=== PATIENT | female | born 1960 | race Caucasian/White ===

== ENCOUNTER 2021-03-06 06:40 | Inpatient (IN) ==
--- NOTE | 2021-02-14 13:50 | PAT Medication Instructions ---
Medication Instructions Date of Service February 14, 2021 Home Medications hydrochlorothiazide 12.5 mg PO QAM ibuprofen 800 mg PO Q6H PRN losartan 50 mg PO QAM simvastatin 20 mg PO QAM ASK your surgeon for instructions ibuprofen 800 mg PO Q6H PRN DO NOT take the morning of surgery hydrochlorothiazide 12.5 mg PO QAM losartan 50 mg PO QAM Take morning of surgery With a small sip of water, OTHERWISE NOTHING TO EAT OR DRINK AFTER MIDNIGHT: simvastatin 20 mg PO QAM Other Notes If you have any questions please call us at [phone] or [phone] or [phone] or [phone]
--- NOTE | 2021-02-15 13:34 | Anesthesiology Consultation ---
Date of Service February 15, 2021 Assessment & Plan (1) Encounter for pre-operative examination: COVID screening: Per assessment on 02/15: Travel screen negative, no known COVID- 19 positive contacts or current COVID-19 related symptoms. Surgeon arranging preop COVID testing. Awaiting results. Chart Review Chart Review: Acceptable Risk for Surgery (pending surgeon-ordered PCP clearance) and Patient seen in Pre Admission Testing Teaching & Discussion Pre-Anesthesia Teaching/Discussion Notes: Instructed NPO after midnight before surgery,except medications with 15 cc of water. Medication instructions provided according to the PAT guidelines. History Surgery Operation Date: 03/06/21 07:00 Proposed Procedures p Right Total Knee Arthroplasty - Antelmo Bernal DO Height/Weight Height: 5 ft 1 in Weight: 89.6 kg Allergies Allergy/AdvReac Type Severity Reaction Status Date / Time latex Allergy Intermediate Rash Verified 02/10/21 13:50 Medications Home Medications Medication Instructions Recorded Confirmed Last Taken hydrochlorothiazide 12.5 mg PO QAM 02/10/21 02/10/21 Unknown ibuprofen 800 mg PO Q6H PRN 02/10/21 02/10/21 Unknown losartan 50 mg PO QAM 02/10/21 02/10/21 Unknown simvastatin 20 mg PO QAM 02/10/21 02/10/21 Unknown Past Medical History Medical History Breast cancer R/L lumpectomy (2005) Hyperlipidemia Hypertension Obesity Osteoarthritis Exercise / Class Metabolic Activity II 4-5 Yardwork/Stairs/Walk up hill Past Family History Family History Father Diabetes Mother Diabetes Past Surgical History Surgical History History of arthroscopic knee surgery R/L meniscus repair History of carpal tunnel release R/L History of section x2 History of colonoscopy History of esophagogastroduodenoscopy (EGD) History of hysterectomy History of laparoscopy History of tooth extraction Hx of lumpectomy R/L Past Anesthesia History No Hx of Anesthesia Complications and No Family Hx of Anesthesia Complications History of PONV No Hx of PONV and Hx of Motion Sickness (+ boats) Social History Smoking Status: Never smoker Do You Dip or Chew Tobacco: No Hx Alcohol Use: Yes Alcohol type: beer and wine alcohol intake frequency: holidays/special occasions only Hx Substance Use: No substance use type: does not use Review of Systems Patient denies chest pain, shortness of breath, dyspnea on exertion, joint pain, reflux, cough, wheezing, palpitations. Physical Exam Vital Signs VITALS BP 123/76 P 66 TEMP 98.8 SP02 95%RA RESP 16 PHYSICAL Full cervical extension range of motion. Full TMJ range of motion. TMD 2.5 finger breaths (small chin/difficult to palpate) Mallampati Score 4 (small oral opening) Dentition: missing molar Lungs: clear throughout to auscultation Cardiac: regular rate and rhythm, no murmurs noted Spine: normal Carotid arteries: negative bruit Extremities: no edema Testing Laboratory Results 02/15/21 14:05 02/15/21 14:05 PT 9.7 Seconds (9.0-12.0) 02/15/21 14:05 INR 1.0 (0.9-1.1) 02/15/21 14:05 APTT 22.9 Seconds (21.0-31.0) 02/15/21 14:05 Hemoglobin A1c 6.0 % (4.5-5.6) H 02/15/21 14:05 Urine Color Dark Yellow 02/15/21 14:05 Urine Appearance Cloudy (Clear) A 02/15/21 14:05 Urine pH 5.0 (4.5-7.5) 02/15/21 14:05 Ur Specific Lynn 1.028 (1.000-1.030) 02/15/21 14:05 Urine Protein Negative (Negative) 02/15/21 14:05 Urine Glucose (UA) Negative (Negative) 02/15/21 14:05 Urine Ketones Trace (Negative) H 02/15/21 14:05 Urine Nitrite Negative (Negative) 02/15/21 14:05 Ur Leukocyte Esterase 2+ (Negative) H 02/15/21 14:05 Urine WBC (Auto) 10-30 /hpf (0-5) H 02/15/21 14:05 Urine RBC (Auto) 0-4 /hpf (0-4) 02/15/21 14:05 U Hyaline Cast (Auto) 1-5 /lpf (0-5) 02/15/21 14:05 U Epithel Cells (Auto) >30 /lpf (0-5) H 02/15/21 14:05 Urine Bacteria (Auto) Negative (Negative) 02/15/21 14:05 Blood Type A Positive 02/15/21 14:05 Antibody Screen NEGATIVE 02/15/21 14:05 Electrocardiogram Date: 02/15/21 Findings: + NSR @ (67) Chest X-Ray Date: 02/15/21 Findings: + NAD
--- NOTE | 2021-02-15 14:33 | XRay Report ---
XR chest Pre-admission PA/Lat HISTORY: 60 years-old Female pat chronic degenerative joint disease COMPARISON: None TECHNIQUE: PA and lateral views of the chest FINDINGS: Cardiomediastinal and hilar silhouettes are within normal limits. No pneumothorax, pleural effusion, airspace consolidation or overt pulmonary edema. Spondylitic spurring of the spine. IMPRESSION: No acute process. ACT 112: Negative or not required by law. The above report was generated using voice recognition software. It may contain grammatical, syntax o r spelling errors. Electronically signed by: David Bull M.D. 02/15/2021 2:31 PM
[2021-02-15 15:55] LABS: Basophils # (auto) 0.01 K/uL (0-0.2); Basophils % (auto) 0.2 %; Eosinophils # (auto) 0.15 K/uL (0-0.5); Eosinophils % (auto) 2.7 %; Hemoglobin 14.5 g/dL (12.0-16.0); Immature Granulocytes # (auto) 0.01 K/uL (0.00-0.02); Immature Granulocytes % (auto) 0.2 %; Lymphocytes # (auto) 2.66 K/uL (1.2-3.4); Lymphocytes % (auto) 48.7 %; Mean Corpuscular Hemoglobin 31.5 pg (25-34); Mean Corpuscular Hgb Conc 33.7 g/dL (32-36); Mean Corpuscular Volume 93.5 fL (80-100); Mean Platelet Volume 10.9 fL (7.4-10.4); Monocytes % (auto) 9.2 %; Neutrophils # (auto) 2.13 K/uL (1.4-6.5); Platelet Count 300 K/uL (130-400); RDW Coefficient of Variation 13.5 % (11.5-14.5); RDW Standard Deviation 46.2 fL (36.4-46.3); White Blood Count 5.46 K/uL (4.8-10.8)
[2021-02-15 16:06] LABS: Partial Thromboplastin Ratio 0.9; Partial Thromboplastin Time 22.9 Seconds (21.0-31.0); Prothrombin Time 9.7 Seconds (9.0-12.0)
[2021-02-15 16:07] LABS: Albumin Level 3.7 gm/dl (3.4-5.0); BUN Creatinine Ratio 34.8 (10-20); Calcium 9.9 mg/dl (8.5-10.1); Creatinine Clr Calc Pharmacy 68.6 ml/min; Est GFR (African American) 81.1 ml/min; Potassium 4.5 mmol/L (3.5-5.1)
[2021-02-15 16:08] LABS: Appearance Urine Cloudy (Clear); Bacteria Urine Automated Negative (Negative); Bilirubin Urine Negative (Negative); Blood Urine Negative (Negative); Color Urine Dark Yellow; Epithelial Cell Urine Auto >30 /lpf (0-5); Glucose Urine UA Negative (Negative); Ketones Urine Trace (Negative); Leukocyte Esterase Urine 2+ (Negative); Nitrite Urine Negative (Negative); Protein Urine Negative (Negative); Specific Gravity Urine 1.028 (1.000-1.030); Urobilinogen Urine Negative (Negative)
[2021-02-15 16:24] LABS: RBC Urine Automated 0-4 /hpf (0-4)
[2021-02-16 07:32] LABS: Estimated Average Glucose 126 mg/dl
--- NOTE | 2021-02-16 09:55 | Electrocardiogram Report ---
Test Reason : Blood Pressure : / mmHG Vent. Rate : 067 BPM Atrial Rate : 067 BPM P-R Int : 200 ms QRS Dur : 096 ms QT Int : 406 ms P-R-T Axes : 038 -20 048 degrees QTc Int : 429 ms Normal sinus rhythm Normal ECG No previous ECGs available Confirmed by Kashmir Tirado ([id number]) on 02/16/2021 9:55:39 AM Referred By: Antelmo Bernal Confirmed By:Alex Tirado
--- NOTE | 2021-03-05 08:12 | History & Physical Report ---
Date of Service March 06, 2021 Assessment & Plan (1) Degenerative joint disease of knee, right: I have indicated the patient for right total knee replacement. The risks, benefits and complications of surgery were explained to the patient which include but not limited to infection, acute blood loss, DVT/PE, injury to nerves, vessels, bone, soft tissue, arthrofibrosis, chronic pain, failure of the prosthesis, knee dislocation, leg length discrepancy, need for additional surgery, cardiac and pulmonary events and . The patient wished to proceed with surgery and informed consent was obtained at this time. We will plan for 81mg ASA BID post-operatively for DVT prophylaxis. Upon discharge the patient will be discharged home with home health services. Appropriate clearances by PCP were obtained. History of Present Illness Chief Complaint: Right knee pain/DJD Primary Care Provider: Carrie Argueta PA-C The patient is a 60 year old female who presents with complaints of severe right knee pain and DJD. The patient has failed outpatient conservative treatments to this point which included NSAIDs, IA corticosteroid and BARRETT injection, home exercise/walking program. The patient's pain and limited function have progressed to the point where they severely hinder their activities of daily living and they no longer tolerate exercise programs. They are requesting to proceed with total knee replacement surgery. Allergies Allergy/AdvReac Type Severity Reaction Status Date / Time latex Allergy Intermediate Rash Verified 03/06/21 07:16 Home Medications Medication Instructions Recorded Confirmed Type hydrochlorothiazide 12.5 mg PO QAM 02/10/21 03/06/21 History ibuprofen 800 mg PO Q6H PRN 02/10/21 03/06/21 History losartan 50 mg PO QAM 02/10/21 03/06/21 History simvastatin 20 mg PO QAM 02/10/21 03/06/21 History Past Med/Surg History Medical History Breast cancer R/L lumpectomy (2005) Hyperlipidemia Hypertension Obesity Osteoarthritis Surgical History History of arthroscopic knee surgery R/L meniscus repair History of carpal tunnel release R/L History of section x2 History of colonoscopy History of esophagogastroduodenoscopy (EGD) History of hysterectomy History of laparoscopy History of tooth extraction Hx of lumpectomy R/L Family History Father Diabetes Mother Diabetes Social History Smoking Status: Never smoker Second Hand Exposure: No; Do You Dip or Chew Tobacco: No; Tobacco Cessation Education Requested by Patient: No Hx Alcohol Use: Yes Alcohol type: beer and wine Hx Substance Use: No Preferred Language: [place] Islander Communication Ability: Effective Chief Communications Officer Required: No Beliefs That Will Affect Care: None Current Living Situation: Spouse Other Information That Helps Us Care for You: No Feels Safe at Home: Yes Safety Concerns: Feels Safe At This Time Assistive Devices: Glasses Review of Systems Review of Systems: All systems reviewed & are unremarkable except as noted in HPI & below Constitutional: as per Subjective / HPI Physical Exam Physical Exam: RLE NVSI +EHL/FHL/TA/GS SILT grossly, +2 DP pulse, compartments soft NT, limited painful ROM of the knee, 3-115 degrees of flexion, +crepitus. Constitutional: WD/WN, vitals as above Eyes: PERRL, conjunctivae normal, anicteric sclerae ENMT: external ear and nose normal, oropharynx normal Neck: trachea midline, no thyromegaly Respiratory: normal respiratory effort, lungs clear to auscultation Cardiovascular: RRR, no murmur, no edema Gastrointestinal (Abdomen): normal bowel sounds, soft, nontender, no hepatosplenomegaly Musculoskeletal: no cyanosis or clubbing, extremities motor strength 5/5 Skin: no rashes, warm and dry Neurologic: patellar DTR's 2+ bilat, sensation intact Psychiatric: A+Ox3, euthymic affect Lymphatic: no cervical or axillary lymphadenopathy Results & Data Pre Admission Testing Addendum Laboratory Results 02/15/21 14:05 02/15/21 14:05 PT 9.7 Seconds (9.0-12.0) 02/15/21 14:05 INR 1.0 (0.9-1.1) 02/15/21 14:05 APTT 22.9 Seconds (21.0-31.0) 02/15/21 14:05 Hemoglobin A1c 6.0 % (4.5-5.6) H 02/15/21 14:05 Urine Color Dark Yellow 02/15/21 14:05 Urine Appearance Cloudy (Clear) A 02/15/21 14:05 Urine pH 5.0 (4.5-7.5) 02/15/21 14:05 Ur Specific [place] 1.028 (1.000-1.030) 02/15/21 14:05 Urine Protein Negative (Negative) 02/15/21 14:05 Urine Glucose (UA) Negative (Negative) 02/15/21 14:05 Urine Ketones Trace (Negative) H 02/15/21 14:05 Urine Nitrite Negative (Negative) 02/15/21 14:05 Ur Leukocyte Esterase 2+ (Negative) H 02/15/21 14:05 Urine WBC (Auto) 10-30 /hpf (0-5) H 02/15/21 14:05 Urine RBC (Auto) 0-4 /hpf (0-4) 02/15/21 14:05 U Hyaline Cast (Auto) 1-5 /lpf (0-5) 02/15/21 14:05 U Epithel Cells (Auto) >30 /lpf (0-5) H 02/15/21 14:05 Urine Bacteria (Auto) Negative (Negative) 02/15/21 14:05 Blood Type A Positive 02/15/21 14:05 Antibody Screen NEGATIVE 02/15/21 14:05 02/15/21 14:05 Urine Culture - Final Urine,Clean Catch Three types or organisms present, all moderate counts probable skin paula. No further identifications or sensitivities to follow.
[~2021-03-06 06:40] MED LIST: ACETAMINOPHEN 500 MG TAB PO SCH; BUPIVACAINE 0.5 % 5 MG/1 ML PF 10ML VIAL ONE; CeleBREX 200 MG CAP PO SCH; EPINEPHrine INJ 1 MG/ML AMP ONE; FAMOTIDINE 20 MG TAB PO SCH; LR 500ML BOLUS, THEN 15ML/HR IV SCH; METOCLOPRAMIDE HCL 10 MG TABLET PO SCH; ROPIVACAINE 0.5% 5 MG/ML 30 ML VIAL ONE; ROPIVACAINE 0.5% HCL/PF 150 MG, BUPIVACAINE 0.75% MPF 20 ML, EPINEPHrine 30MG/30ML (OR ... INFIL SCH; TRANEXAMIC ACID / 0.7% NACL 1,000 MG/100 ML BAG IV SCH; ceFAZolin 2000MG 2,000 MG/15 ML SYR IV SCH; dexAMETHasone 4 MG TAB PO SCH
[2021-03-06] MEDS ORDERED: fentaNYL citrate 100 MCG/2 ML VIAL ONE ×2 (08:16→10:28)
[2021-03-06] MEDS ORDERED: MIDAZOLAM HCL 1 MG/ML 2ML VIAL ONE ×2 (08:16→09:16)
[2021-03-06] MEDS ORDERED: VASOPRESSIN 20 UNIT/ML VIAL ONE (08:16)
--- NOTE | 2021-03-06 09:09 | History & Physical Bridge Note ---
Date of Service March 06, 2021 History & Physical Bridge Note I have examined the patient, reviewed the History & Physical and in the interval since the performance of the History & Physical I have noted the following changes of clinical significance: no changes noted
[2021-03-06] MEDS ORDERED: ORTHO JOINT ANESTHETIC ONE (09:13)
[2021-03-06] MEDS ORDERED: PROPOFOL IV EMULSION 10 MG/ML 20 ML VIAL IV ONE (10:06)
[2021-03-06] MEDS ORDERED: DEXAMETHASONE SOD INJ 4 MG/ML VIAL ONE (10:06)
[2021-03-06] MEDS ORDERED: ONDANSETRON INJ 2 MG/ML 2 ML VIAL ONE ×2 (10:06→11:57)
[2021-03-06] MEDS ORDERED: LIDOCAINE 2% 2 ML VIAL/AMP(20MG/ML) INFIL ONE (10:06)
--- NOTE | 2021-03-06 11:14 | Post Operative Brief Note ---
Immediate Post Op Note v1 Date of Surgery March 06, 2021 Pre & Post Diagnosis Operation Date: 03/06/21 09:35 Pre-Op Diagnosis: Unilateral Primary Osteoarthritis Knee Right Post-Op Diagnosis: Unilateral Primary Osteoarthritis Knee Right I identified the patient and participated in the time-out.: Yes Procedure Operation Date: 03/06/21 09:35 Actual Procedures p Right Total Knee Arthroplasty(Right) - Antelmo Bernal DO Surgeon Antelmo Bernal DO Concrete Laborer Raymond Silverio Estimated Blood Loss 70 Findings Consistent with Post-Op Diagnosis Fluids See anesthesia report Specimens Proximal tibia and distal femur bone fragments Anesthesia Type Spinal MAC Complications none Disposition Disposition: Recovery Room Overlapping Procedure I was present for: the critical portions of procedure. I was immediately available: during the entire case. Back up surgeon: was not required during procedure.
--- NOTE | 2021-03-06 11:16 | Operative Report ---
Post Operative Report Pre & Post Diagnosis Operation Date: 03/06/21 09:35 Pre-Op Diagnosis: Unilateral Primary Osteoarthritis Knee Right Post-Op Diagnosis: Unilateral Primary Osteoarthritis Knee Right I identified the patient and participated in the time-out.: Yes Procedure Operation Date: 03/06/21 09:35 Actual Procedures p Right Total Knee Arthroplasty(Right) - Antelmo Bernal DO Surgeon Antelmo Bernal, Diesel Tractor Operator Raymond Silverio Estimated Blood Loss 70 Findings Consistent with Post-Op Diagnosis Fluids See anesthesia report Specimens Proximal tibia and distal femur bone fragments Anesthesia Type Spinal MAC Complications none Disposition Disposition: Recovery Room Indications The patient is a 60-year-old female presents with long history of severe right knee tricompartmental DJD and failed outpatient conservative treatments including NSAIDs, bracing, injections and home walking/exercise program. The patient's symptoms have progressed to the point where it has been difficult to perform normal activities of daily living. I have indicated the patient for a right total knee arthroplasty, the risks and benefits and complications of the procedure include but are not limited to infection bleeding damage to bone, nerves, vessels, surrounding soft tissue, blood clots, loss of function, leg length discrepancy, dislocation, failure of the components, need for additional surgery and . The patient wished to proceed with surgery at this time and informed consent was obtained. Appropriate clearances were obtained. Description of Procedure COMPONENTS USED: Fabiana persona knee system: Femur size 6 narrow, Tibia size D, Tibial articulating surface 14 CPS, Patella 32 mm round Following induction of spinal anesthesia, a tourniquet was applied to the proximal aspect of the thigh and the patient's right leg was prepped and draped in the usual sterile manner. A timeout was performed, patient identified and site jozef confirmed. Appropriate pre-operative IV antibiotics were given. The limb was exsanguinated with an Esmarch bandage and tourniquet was inflated to 300 mmHg. A longitudinal midline incision was made over the anterior knee. Subcutaneous tissue was sharply dissected down to fascia. Electrocautery was used for hemostasis. Next a parapatellar arthrotomy was performed. Patella was everted and the knee was flexed. A Reyes retractor was used to expose the synovium above on the anterior aspect of the femur and removed down to bone. Next, the anterior fat pad was removed to aid in visualization. The medial face of the tibia was cleared of soft tissue first with a Bovie and a fuentes elevator. This tissue was retracted posteriorly using a blunt Hohmann. Next, the extra-medullary tibial cutting guide was placed to the anterior aspect of the tibia. The tibia resection level was set taking 2mm from the defective tibial condyle. Resection depth was once again confirmed with ashu wing. The medial and lateral collateral ligament was protected with two Hohmann retractors. The tibia guide was removed and proximal tibial bone fragment removed utilizing straight osteotome, electrocautery and Candida. Next, the distal femur intramedullary canal was accessed utilizing the step drill. The intramedullary distal femur cutting guide was placed into the canal and pinned into place. The distal femur was cut on the 5 degree setting. Next the cutting guide was removed and the femur was sized. Care was taken to ensure appropriate waist cutter all rotation and 3 degree holes were drilled. A size 6 4-in-1 cutting block was placed on the distal end of the femur and secured into place with two short headed screws. Two bent Hohmann retractors were placed to protect the medial and lateral collateral ligaments. The oscillating saw was used to cut anterior, posterior, anterior chamfer and posterior chamfer. The four and one cutting block was removed and bone fragments excised. Laminar cigarette tipper was placed laterally and the ACL and PCL were removed followed by the medial meniscus and posterior medial osteophytes. Aquamantys was utilized for any posterior medial bleeders and Orthomix injected into the posterior medial capsule. A laminar cigarette tipper was then placed in the medial compartment and the lateral meniscus and posterior osteophytes were removed. Aquamantys was utilized for any posterior lateral bleeders and Orthomix injected into the posterior lateral capsule. Next, drop ana and spacer block were placed with the leg in flexion and extension to assess alignment and flexion/extension gaps. Next, the proximal tibia was assessed and two bent Hohmans were placed medial and lateral to aid in visualization. The appropriate tibia size and rotation was selected and a size D tibial plate was pinned into place with appropriate rotation. Preparation of the tibia was completed utilizing the matching tibial drill and broach. I then turned my attention back to the distal femur in a trial femoral component was impacted into place. Appropriate femoral width was assessed and selected. Next the femur PS box cut guide was placed and cut made with the reciprocal saw and the PS box provisional placed. A trial size 12 PS tibia articular tray was placed and varus-valgus balance assessed in 0 degrees of extension and 30, 60 and 90 degrees of flexion. A final tibial articular surface size 14 CPS was chosen. Assess was gained to the patella and caliper utilized to measure width. The patella reamer was utilized and remaining bone removed with oscillating saw. A size 32 mm patella button was selected and the patella pegs drilled. Trial patella button was placed and tracking was assessed. The knee was found to be well balanced, well aligned with excellent patella tracking. The trials were removed and final components were obtained and assembled. The knee was irrigated copiously with sterile saline solution mixed with bacitracin. Access to the proximal tibia was once again obtained utilizing to the Hohmans and the proximal tibia and distal femur were dried with lap sponges. The final components were cemented into place and all excess cement was removed. A trial tibial articular surface was placed while cemented hardened. Knee stability was once again assessed and the final component inserted. A Betadine soak was performed. After 3 minutes, the knee was once more irrigated with copious sterile saline solution with bacitracin. The knee was injected with the remaining Orthomix which includes a combination of Ropivicaine 0.5% 150mg, Bupivicaine 0.5%/Epinephrine 1:200,000 30ml, Toradol 30mg, Dexamethasone 4mg, Ketamine 10mg, Clonidine 100mcg and NSS 30ml solution. The capsulotomy was closed with #1 Vicryl followed by subcutaneous closure with 2-0 Vicryl suture and skin was closed with taylor. A sterile dry dressing was applied which included martin incisional VAC, web roll and Marcus wrap. Tourniquet was deflated at 88 minutes. The patient tolerated the procedure well and was taken to the PACU in stable condition. Due to the complex nature of the procedure, the entire surgery was performed with the operational assistance of Raymond Silverio PA-C. The journeyman operator assistant, under direct supervision, was involved in the actual performance of all aspects of the surgical procedure including patient positioning, hemostasis, tissue retraction, instrument management and wound closure. I attest to the content of the Intraoperative Record and any orders documented therein. Any exceptions are noted below.
[2021-03-06] MEDS ORDERED: LABETALOL HCL IV 5 MG/ML 20ML IV PRN (11:54)
[2021-03-06] MEDS ORDERED: FLUMAZENIL 0.1 MG/1 ML 10 ML VIAL IV PRN (11:54)
[2021-03-06] MEDS ORDERED: PROMETHAZINE HCL 12.5 MG in SODIUM CHLORIDE 0.9% 50 ML IV PRN (11:54)
[2021-03-06] MEDS ORDERED: fentaNYL citrate 100 MCG/2 ML VIAL IV PRN (11:54)
[2021-03-06] MEDS ORDERED: ePHEDrine sulfate 50 MG/ML AMP IV PRN (11:54)
[2021-03-06] MEDS ORDERED: HYDROmorphone INJ 0.5 MG/0.5 ML SYR IV PRN ×2 (11:54→12:42)
[2021-03-06] MEDS ORDERED: ATROPINE SULFATE 0.1 MG/ML 10ML SYR IV PRN (11:54)
[2021-03-06] MEDS ORDERED: ONDANSETRON INJ 2 MG/ML 2 ML VIAL IV PRN ×2 (11:54→12:42)
[2021-03-06] MEDS ORDERED: NALOXONE HCL 0.4 MG/1 ML VIAL/CARP IV PRN ×2 (11:54→12:42)
--- NOTE | 2021-03-06 12:13 | XRay Report ---
RIGHT KNEE 2 VIEWS History: Right total knee arthroplasty. Degenerative arthritis. Postop. FINDINGS: The patient is status post a right total knee arthroplasty. The hardware is intact. No frac ture or dislocation. Skin taylor are in place. IMPRESSION: Right total knee arthroplasty. No evidence for hardware complication. ACT 112: Negative or not required by law. Electronically signed by: Winston Burnett M.D. 03/06/2021 12:12 PM
--- NOTE | 2021-03-06 12:24 | Anesthesiology Progress Note ---
Date of Service March 06, 2021 Anesthesia Post Procedure Vital Signs Vital Signs: Temp Pulse Pulse Resp BP Pulse Ox 03/06/21 12:10 91 H 20 123/67 97 03/06/21 12:00 93 H 18 128/72 95 03/06/21 11:50 36.4 C L 94 H 16 133/72 94 03/06/21 07:31 37.1 C 75 20 161/74 H 96 Transfer of Care Handoff Completed per policy Notes Mental Status: alert / awake / arousable Patient Amnestic to Procedure: Yes Nausea / Vomiting: adequately controlled Pain: adequately controlled Airway Patency, RR, SpO2: stable & adequate BP & HR: stable & adequate Hydration State: stable & adequate Anesthetic Complications: no major complications apparent
[2021-03-06] MEDS ORDERED: bisacodyL 10 MG SUPP PR PRN (12:42)
[2021-03-06] MEDS ORDERED: METOCLOPRAMIDE HCL INJ 5 MG/ML 2 ML VIAL IV PRN (12:42)
[2021-03-06] MEDS ORDERED: MAGNESIUM HYDROXIDE SUSP 30 ML UDC PO PRN (12:42)
[2021-03-06] MEDS ORDERED: diphenhydrAMINE Capsule 25 MG CAP PO PRN (12:42)
--- NOTE | 2021-03-06 12:42 | Orthopedic Progress Note ---
Date of Service March 06, 2021 Assessment & Plan (1) Degenerative joint disease of knee, right: s/p right TKA -ancef x 24 -DVT ppx: SCDs, TEDs, 81mg ASA BID -WBAT RLE -PT/OT -PO XR demonstrates a well aligned well fixed prothesis without fracture or dislocation -am labs -DC planning Admission and Anticipated Discharge Date Admission Date: March 06, 2021 Subjective Post Operative Progress Note Patient seen in PACU resting comfortable, no acute issues. Review of Systems Review of Systems: All systems reviewed & are unremarkable except as noted in HPI & below Constitutional: as per Subjective / HPI Physical Exam Physical Exam: RLE PE limited secondary to anesthesia, +2 DP pulse, compartments soft NT, dressing CDI. Constitutional: WD/WN, vitals as above Eyes: PERRL, conjunctivae normal, anicteric sclerae ENMT: external ear and nose normal, oropharynx normal Neck: trachea midline, no thyromegaly Respiratory: normal respiratory effort, lungs clear to auscultation Cardiovascular: RRR, no murmur, no edema Gastrointestinal (Abdomen): normal bowel sounds, soft, nontender, no hepatosplenomegaly Musculoskeletal: no cyanosis or clubbing, extremities motor strength 5/5 Skin: no rashes, warm and dry Neurologic: patellar DTR's 2+ bilat, sensation intact Psychiatric: A+Ox3, euthymic affect Lymphatic: no cervical or axillary lymphadenopathy Results & Data ([facility]) Vital Signs (Past 12 Hours) Vital Signs Temp Pulse Pulse Resp BP Pulse Ox 03/06/21 12:10 91 H 20 123/67 97 03/06/21 12:00 93 H 18 128/72 95 03/06/21 11:50 36.4 C L 94 H 16 133/72 94 03/06/21 07:31 37.1 C 75 20 161/74 H 96
[2021-03-06] MEDS: KETOROLAC TROMETHAMINE 15 MG/ML VIAL IV SCH ×3 (13:19→22:55)
[2021-03-06] MEDS ORDERED: SODIUM CHLORIDE 0.9% 1000ML 1,000 ML IV SCH (14:00)
[2021-03-06] MEDS: ACETAMINOPHEN 500 MG TAB PO SCH ×2 (14:41→20:51)
[2021-03-06] MEDS: ceFAZolin 2000MG 2,000 MG/15 ML SYR IV SCH (17:30)
[2021-03-06] MEDS: DOCUSATE SODIUM 100 MG CAP PO SCH (20:51)
[2021-03-06] MEDS ORDERED: SENNA 8.6 MG TAB PO SCH (21:00)
[2021-03-07] MEDS: ceFAZolin 2000MG 2,000 MG/15 ML SYR IV SCH (01:18)
[2021-03-07] MEDS: KETOROLAC TROMETHAMINE 15 MG/ML VIAL IV SCH (05:26)
[2021-03-07] MEDS: ACETAMINOPHEN 500 MG TAB PO SCH ×2 (05:26→13:16)
[2021-03-07 08:24] LABS: Hematocrit (blood only) 36.6 % (37-47); Hemoglobin 12.4 g/dL (12.0-16.0); Mean Corpuscular Hemoglobin 31.1 pg (25-34); Mean Corpuscular Hgb Conc 33.9 g/dL (32-36); Mean Corpuscular Volume 91.7 fL (80-100); Mean Platelet Volume 10.6 fL (7.4-10.4); Platelet Count 291 K/uL (130-400); RDW Coefficient of Variation 13.3 % (11.5-14.5); RDW Standard Deviation 44.7 fL (36.4-46.3); Red Blood Count 3.99 M/uL (4.2-5.4); White Blood Count 14.11 K/uL (4.8-10.8)
[2021-03-07] MEDS: oxyCODONE HCL IR 5 MG TAB (IMMEDIATE RELEASE) PO PRN ×2 (08:34→12:38)
[2021-03-07] MEDS: DOCUSATE SODIUM 100 MG CAP PO SCH (08:35)
[2021-03-07 08:36] LABS: BUN Creatinine Ratio 27.1 (10-20); Calcium 9.2 mg/dl (8.5-10.1); Creatinine Clr Calc Pharmacy 63.1 ml/min; Est GFR (African American) 73.2 ml/min; Est GFR (Non-African American) 63.1 ml/min
[2021-03-07] MEDS ORDERED: MULTIVITAMIN TAB PO SCH (09:00)
[2021-03-07] MEDS ORDERED: SIMVASTATIN 20 MG TAB PO SCH (09:00)
[2021-03-07] MEDS ORDERED: hydroCHLOROthiazide 25 MG TAB PO SCH (09:00)
[2021-03-07] MEDS ORDERED: LOSARTAN POTASSIUM 50 MG TAB PO SCH (09:00)
[2021-03-07] MEDS ORDERED: ASPIRIN 81 MG ECTAB PO SCH (09:00)
--- NOTE | 2021-03-07 09:27 | Orthopedic Progress Note ---
Date of Service March 07, 2021 Assessment & Plan (1) Degenerative joint disease of knee, right: s/p right TKA POD#1 -ancef x 24 -DVT ppx: SCDs, TEDs, 81mg ASA BID -WBAT RLE -PT/OT -PO XR demonstrates a well aligned well fixed prothesis without fracture or dislocation -am labs - as above, hgb 12.4 -DC planning - home with Admission and Anticipated Discharge Date Admission Date: March 06, 2021 Subjective Post Operative Progress Note Patient seen sitting up in bed, comfortable, denies complaints, pain well controlled, no acute issues. Denies F/C/N/V/SOB/CP. Review of Systems Review of Systems: All systems reviewed & are unremarkable except as noted in HPI & below Constitutional: as per Subjective / HPI Physical Exam Physical Exam: RLE NVSI +EHL/FHL/TA/GS SILT grossly, +2 DP pulse, compartments soft NT, dressing cdi. Constitutional: WD/WN, vitals as above Results & Data ([facility]) Vital Signs (Past 12 Hours) Vital Signs Temp Pulse Resp BP Pulse Ox 03/07/21 07:04 36.5 C 67 18 115/51 L 97 03/07/21 05:29 36.4 C L 68 14 131/77 96 03/06/21 22:45 36.6 C 78 16 136/74 94 Laboratory Results 03/07/21 03/07/21 03/06/21 Range/Units 07:49 07:49 07:17 WBC 14.11 H (4.8-10.8) K/uL RBC 3.99 L (4.2-5.4) M/uL Hgb 12.4 (12.0-16.0) g/dL Hct 36.6 L (37-47) % MCV 91.7 (80-100) fL MCH 31.1 (25-34) pg MCHC 33.9 (32-36) g/dL RDW Std Deviation 44.7 (36.4-46.3) fL RDW Coeff of Francis 13.3 (11.5-14.5) % Plt Count 291 (130-400) K/uL MPV 10.6 H (7.4-10.4) fL Sodium 138 (136-145) mmol/L Potassium 4.0 (3.5-5.1) mmol/L Chloride 106 (98-107) mmol/L Carbon Dioxide 24 (21-32) mmol/L Anion Gap 8.0 (3-11) BUN 27 H (7-18) mg/dl Creatinine 0.98 (0.6-1.2) mg/dl Est Cr Clr Drug Dosing 63.1 ml/min Est GFR ( Amer) 73.2 ml/min Est GFR (Non-Af Amer) 63.1 ml/min BUN/Creatinine Ratio 27.1 H (10-20) Glucose 130 H (70-99) mg/dl Calcium 9.2 (8.5-10.1) mg/dl Hepatitis C Ab Screen Neg (Neg)
[2021-03-07] MEDS ORDERED: CeleBREX 200 MG CAP PO SCH (21:00)
--- NOTE | 2021-03-07 21:32 | Discharge Summary ---
Date of Service March 07, 2021 Admission HPI Per Admitting Provider The patient is a 60 year old female who presents with complaints of severe right knee pain and DJD. The patient has failed outpatient conservative treatments to this point which included NSAIDs, IA corticosteroid and BARRETT injection, home exercise/walking program. The patient's pain and limited function have progressed to the point where they severely hinder their activities of daily living and they no longer tolerate exercise programs. They are requesting to proceed with total knee replacement surgery. Principal Diagnosis Right total knee replacement Discharge Exam RLE NVSI +EHL/FHL/TA/GS SILT grossly, +2 DP pulse, compartments soft NT, dressing cdi. Constitutional WD/WN, vitals as above Discharge Data Allergies Allergy/AdvReac Type Severity Reaction Status Date / Time latex Allergy Intermediate Rash Verified 03/06/21 07:16 Procedures Performed Operation Date: 03/06/21 09:35 Actual Procedures p Right Total Knee Arthroplasty(Right) - Antelmo Bernal DO Ordered Studies 03/06/21 05:00 US - OR guided needle placemen Routine Hospital Course (1) Degenerative joint disease of knee, right: The patient is a 60 -year-old female who presents with long standing history of severe right knee DJD and failed outpatient conservative treatments. The patient's symptoms have progressed to the point where it has been difficult to perform even normal activities of daily living. I indicated the patient for a right total knee arthroplasty, the risks, benefits and complications of the procedure include but not limited to infection, bleeding, damage to bone, nerves, vessels, surrounding soft tissue, may develop blood clots, loss of function, leg length discrepancy, dislocation, failure of the components, loosening of the components, the need for additional surgery and . The patient wished to proceed with surgery at this time and informed consent was obtained. Hospital Course: On 03/06/21 the patient was taken to the operating room, adequate anesthesia ad ministered and underwent a right total knee arthroplasty. The patient tolerated the procedure well and was taken to the PACU in stable condition. Post- operatively the patient was started on a DVT ppx medication and given appropriate IV antibiotics. Consults were placed to physical therapy, occupational therapy and case management. On POD#1, the patient did well overnight and their pain was well controlled. Labs were drawn and the Hgb was 12.4. The patient progressed well with PT. Dressings were changed at this time and the incision was clean, dry and intact. The patients hospital stay was relatively uneventful and they were deemed stable by the orthopedic team and consultants to be discharged home with HH on 03/07/21. Discharge Instructions: Upon discharge the patient may weight bear as tolerates through their operative extremity. They were instructed to keep the incision clean and dry at all times. The patient may shower but should not submerge the incision, avoid bathi ng, pools and hot tubs. The patient was given a script for pain medication and should take as instructed. The patient was given a script for DVT ppx 81mg ASA BID and should take as directed. The patient was instructed to not drive or travel for long distances until cleared to do so. If the patient develops any symptoms of fevers, chills, nausea, vomiting, increased redness, swelling, pain or drainage from the surgical site, they should notify the office and/or proceed to the nearest emergency room. The patient should follow up in 10-14 days after surgery for their routine post-operative follow-up appointment and should call the office, to confirm the date and time. s/p right TKA POD#1 -ancef x 24 -DVT ppx: SCDs, TEDs, 81mg ASA BID -WBAT RLE -PT/OT -PO XR demonstrates a well aligned well fixed prothesis without fracture or dislocation -am labs - as above, hgb 12.4 -DC planning - home with Total Time Total Time Spent Total Time Spent (In Minutes): 30 Discharge Plan Discharge Items Patient Disposition: Home - Home Health Services Reason For Visit: Unilateral Primary Osteoarthritis Knee Right Discharge Diagnosis: Right total knee replacement Condition on Discharge: Good Activity: Per Instructions section Lifting: Wait until after follow-up appointment Bathing: Keep incision dry Bathing Comment: No bathing, pools or hot tubs. Sexual Activity: Wait until after follow-up appointment Exercise/Sports: Wait until after follow-up appointment Driving/Machine Use: No driving. Weightbearing: Full weightbearing Non-emergency contact: Primary Care Provider and Surgeon Call non-emergency contact if: you have any medication questions, your symptoms worsen, your pain is not controlled, your pain is worsening, your pain is unusual for you, your pain is concerning for you, you have a fever, your temperature is above 101, your wound has increased redness, your wound has increased drainage and your wound pain has increased Follow-up/Referrals: Carrie Argueta PA-C [Primary Care Provider] - Diet: Regular Addtl Attending Provider Instructions: ACTIVITY RECOMMENDATIONS: SELF CARE INSTRUCTIONS AFTER TOTAL KNEE REPLACEMENT A. You may need to continue a physical therapy program after discharge from the hospital. There are several options available to you. Your doctor will assist you in selecting the best one for you. 1. An out-patient facility 2 to 3 times a week for therapy or home therapy. 2. Continue working on all exercises taught to you in the hospital. Your goals should be to increase bending of your knee to 90 degrees and beyond and to fully straighten your knee. B. You may progress at your own pace from walking with a walker or crutches to a cane; then to no assistive devices. C. Make walking a part of your daily routine. Be up as much as comfortable with rest periods throughout the day. Rest with leg elevation is very important. Use the ice wrap frequently for the first 3-4 weeks. D. There are no restrictions on activities. You may ride in a car, shop, participate in computer salesperson retail and all social activities. E. Wear the long elastic stockings (STELLA hose) 20 hours a day for 2 weeks after surgery. They can be removed several times a day for laundering and for a bath. F. You may shower, no tub baths until cleared by your doctor. SPECIAL CARE INSTRUCTIONS: VERY IMPORTANT TO READ AND REVIEW A. There are a few signs you need to watch for after you are home. Call [facility] if you notice any of the followin. Increased severe knee pain. Some pain is expected especially when you exercise. 2. Increased swelling in your leg or knee; pain or swelling of the calf muscle in either lower leg. 3. Any fluid drainage from the incision. 4. Shortness of breath or chest pain. B. Please call [facility] at if you have any concerns or questions about your operation or recovery. The doctor or his nurse will return your call promptly. C. You must take antibiotics before dental work, bladder, bowel or other surgery. Your doctor will provide you with a permanent care to carry describing this precaution. IMPORTANT: * REMEMBER TO TAKE ASPIRIN, 81 MG, TWICE DAILY FOR 4 WEEKS UNLESS OTHERWISE DIRECTED. THIS IS YOUR BLOOD THINNER. * HIGH RISK PATIENTS MAY BE PRESCRIBED A STRONGER BLOOD THINNER. THIS WILL BE PROVIDED AT DISCHARGE. * CALL IF INCREASED PAIN, REDNESS, DRAINAGE OR FEVER GREATER THAT 101. * WEAR STELLA HOSE 20 HOURS PER DAY FOR 2 WEEKS. *SAAD incisional vac is a special dressing covering your incision. This dressing provides a sterile dry environment while you are healing. The dressing is to be left in place for 7 days post-operatively. Your home nurse or surgeon will remove. If you develop any redness or blisters or have any questions notify your surgeon immediately. FOLLOW UP VISIT: If appointment is not already scheduled: Please call [facility] to make a follow-up appointment for 2 weeks after your surgery at . Pending Studies at Discharge: No Stand-Alone Forms: My [facility] [employer] [facility], Opioid Pain Management, Smoking Cessation Medications and DC Order Prescriptions: New celecoxib [Celebrex] 200 mg Capsule 200 mg PO BID PRN (Reason: pain/inflammation) Qty: 30 RF: 0 aspirin 81 mg Tablet,Delayed Release (Dr/Ec) 81 mg PO BID Qty: 56 RF: 0 acetaminophen 500 mg Tablet 1,000 mg PO Q8 PRN (Reason: pain/fevers) Qty: 90 RF: 0 oxycodone 5 mg Tablet 5 mg PO Q6H MDD 4 PRN (Reason: pain) Qty: 30 RF: 0 sennosides [Senokot] 8.6 mg Tablet 17.2 mg PO HS PRN (Reason: constipation) Qty: 30 RF: 0 Continued losartan 50 mg Tablet 50 mg PO QAM RF: 0 simvastatin 20 mg Tablet 20 mg PO QAM RF: 0 hydrochlorothiazide 12.5 mg Tablet 12.5 mg PO QAM RF: 0 Discontinued ibuprofen 200 mg Tablet 800 mg PO Q6H PRN (Reason: Pain) RF: 0 Discharge Orders: Discharge Order (Routine); Ordered 03/07/21 Ordered By: Antelmo Cabral/Other Patient Handouts: 5 Steps for Eating Healthier, A1C Admission Data Admit Date/Time: 03/06/21 11:47 Attending Provider: Antelmo Bernal Admit Provider: Antelmo Bernal Primary Care Provider: Carrie Argueta Other Providers: [facility] Other Interventions: Discharge Summary Assessment (RN) Last Done: 03/07/21 12:51
== END 2021-03-07 15:08 | disposition home health service (06) | DRG 470 ==
LOC: 3E 06:40 → ASU 06:40 → OBSVTOIN 11:47